=== PATIENT | female | born 1995 | race Native Hawaiian/Other Pacific Islander ===

== ENCOUNTER 2017-08-30 14:56 | Outpatient (CLI) | payer BC | END 2017-08-30 21:50 | disposition home or self-care (01) | LOC: LABW 14:56 | DX: Z02.1 Encounter for pre-employment examination (principal) | CPT/HCPCS: 93005 ==

== ENCOUNTER 2017-12-21 14:05 | Outpatient (CLI) | payer BC | END 2017-12-21 21:22 | disposition home or self-care (01) | LOC: MRI 14:05 | DX: Q07.00 Arnold-Chiari syndrome without spina bifida or hydrocephalus (principal) | CPT/HCPCS: A9576 ==

== ENCOUNTER 2020-08-03 13:56 | Outpatient (CLI) | payer BC | END 2020-08-03 21:40 | disposition home or self-care (01) | LOC: RAD 13:56 | PROVIDERS: ATTEND Nurse Practitioner | DX: Z01.818 Encounter for other preprocedural examination (principal) ==